=== PATIENT | female | born 1995 | race Two or more races ===

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

== ENCOUNTER 2017-04-04 17:11 | Emergency (ER) | payer SELFPAY, OTHER ==
[2017-04-04 17:51] LABS: URINE HCG POC HCG POSITIVE (Negative)
[2017-04-04 18:22] LABS: BILIRUBIN,URINE NEGATIVE (NEG); CLARITY,URINE CLEAR; COLOR,URINE YELLOW; GLUCOSE,URINE NEGATIVE (NEG); NITRITE,URINE NEGATIVE (NEG); PROTEIN,URINE 100 mg/dL (NEG-TRACE)
[2017-04-04 18:38] LABS: BACTERIA,URINE FEW /HPF (0-FEW); SQUAMOUS EPITHELIAL CELL,UR FEW /LPF; WBC,URINE >40 /HPF (0-4)
== END 2017-04-04 19:25 | disposition home or self-care (01) ==
LOC: ER 17:11
DX: O23.41 Unspecified infection of urinary tract in pregnancy, first trimester (principal); O99.321 Drug use complicating pregnancy, first trimester; F12.10 Cannabis abuse, uncomplicated; Z3A.08 8 weeks gestation of pregnancy; Z87.440 Personal history of urinary (tract) infections
CPT/HCPCS: 81001; 81025; 87086; 99284

== ENCOUNTER 2018-07-10 17:06 | Emergency (ER) | payer SELFPAY ==
[~2018-07-10] VITALS: Ht 154.9 cm; Wt 106.1 kg
[~2018-07-10 17:06] MED LIST changes: +CEPH250C PO
[2018-07-10] MEDS ORDERED: ACETAMINOPHEN 500 MG TABLET PO ONE (18:15)
[2018-07-10 18:53] LABS: INFLUENZA A PATIENT POSITIVE (NEGATIVE); INFLUENZA B PATIENT NEGATIVE (NEGATIVE)
--- NOTE | 2018-07-10 19:11 | RAD ---
CHEST PA LATERAL Technique: PA and lateral views of the chest were obtained. Clinical History: CHEST PAIN, SOA, COUGH, CONGESTION X2 DAYS Comparison: None. Findings: The heart and pulmonary vasculature appear within normal limits. The lungs are clear. The pleural margins are clear. Impression: No acute chest process is seen. Electronically signed by: Negrito Whatley III, MD (07/10/2018 7:07 PM) [facility]
[2018-07-10] MEDS ORDERED: OSEL75CA PO (19:34)
--- NOTE | 2018-07-10 19:35 | PHYS DOC ---
Past Medical History Past Medical History: No Pertinent History (JAMSE KOCH APRN) Past Surgical History: Other Additional Past Surgical Histo: Eye muscle surgery for crossed eyes,FOOT (JAMES KOCH APRN) Alcohol Use: None Drug Use: Marijuana (JAMES KOCH APRN) Adult General Chief Complaint Chief Complaint: COUGH HPI HPI Patient is a 22 year old female who presents with fever, cough, sore throat and nasal congestion since yesterday. (JAMES KOCH APRN) Review of Systems Review of Systems Constitutional: Reports fever Eyes: Denies change in visual acuity, redness, or eye pain [] HENT: Reports nasal congestion and sore throat [] Respiratory: Denies cough or shortness of breath [] Cardiovascular: No additional information not addressed in HPI [] GI: Denies abdominal pain, nausea, vomiting, bloody stools or diarrhea [] : Denies dysuria or hematuria [] Musculoskeletal: Denies back pain or joint pain [] Integument: Denies rash or skin lesions [] Neurologic: Denies headache, focal weakness or sensory changes [] All other systems were reviewed and found to be within normal limits, except as documented in this note. (JAMES KOCH APRN) Current Medications Current Medications Current Medications Medications (Trade) Dose Ordered Sig/Seda Start Time Stop Time Status Last Admin Dose Admin Acetaminophen (Tylenol) 1,000 mg 1X ONCE 07/10/18 18:15 07/10/18 18:16 DC 07/10/18 18:14 1,000 MG (IVETT FOLEY MD) Allergies Allergies Allergies Coded Allergies Type Severity Reaction Last Updated Verified No Known Drug Allergies 10/07/14 No (IVETT FOLEY MD) Physical Exam Physical Exam Constitutional: Well developed, well nourished, no acute distress, non-toxic appearance. [] HENT: Normocephalic, atraumatic, bilateral external ears normal, oropharynx moist, no oral exudates, nose normal. [] Eyes: PERRLA, EOMI, conjunctiva normal, no discharge. [] Neck: Normal range of motion, no tenderness, supple, no stridor. [] Cardiovascular:Heart rate regular rhythm, no murmur [] Lungs & Thorax: Bilateral breath sounds clear to auscultation [] Abdomen: Bowel sounds normal, soft, no tenderness, no masses, no pulsatile masses. [] Skin: Warm, dry, no erythema, no rash. [] Back: No tenderness, no CVA tenderness. [] Extremities: No tenderness, no cyanosis, no clubbing, ROM intact, no edema. [] Neurologic: Alert and oriented X 3, normal motor function, normal sensory function, no focal deficits noted. [] Psychologic: Affect normal, judgement normal, mood normal. [] (JAMES KOCH APRN) Current Patient Data Vital Signs Vital Signs Date Time Temp Pulse Resp B/P (MAP) Pulse Ox O2 Delivery O2 Flow Rate FiO2 07/10/18 17:43 100.8 107 20 129/60 (83) 98 Room Air 100.8 (IVETT FOLEY MD) Lab Values Laboratory Tests Test 07/10/18 18:05 Influenza Type A Antigen Positive (NEGATIVE) Influenza Type B Antigen Negative (NEGATIVE) (IVETT FOLEY MD) EKG EKG [] (JAMES KOCH APRN) Radiology/Procedures Radiology/Procedures [] (JAMES KOCH APRN) Course & Med Decision Making Course & Med Decision Making Pertinent Labs and Imaging studies reviewed. (See chart for details) This is a 22-year-old female patient presenting to the ED today with a fever cough and nasal congestion symptoms for 2 days. Temperature on arrival to the ED 100.4. Negative rapid strep. Negative positive influenza A, negative influenza A, chest x-ray negative. Discharged on Tamiflu. Tylenol/ Motrin for pain or fever. (JAMES KOCH APRN) Course & Med Decision Making attestation: I was working at the time of the ER visit. I was available as needed for consultation but I was not directly involved in the care of the patient. (IVETT FOLEY MD) Dragon Disclaimer Dragon Disclaimer This electronic medical record was generated, in whole or in part, using a voice recognition dictation system. (JAMES KOCH APRN) Departure Departure Impression: Primary Impression: Influenza A Additional Impressions: Fever Cough Viral pharyngitis Disposition: 01 HOME, SELF-CARE Condition: STABLE Referrals: RICARDO GUY MD (PCP) follow up in 1 week Patient Instructions: Influenza A (H1N1) Additional Instructions: You tested positive for influenza A, we put you on Tamiflu, take it as prescribed. Take Tylenol every 4 hours and Motrin every 6 hours as needed for fever. Rest, push fluids. Follow-up with your doctor in 1-2 weeks. Scripts Oseltamivir Phosphate (TAMIFLU) 75 Mg Capsule 1 CAP PO BID, #10 CAP Prov: JAMES KOCH APRN 07/10/18 Problem Qualifiers Additional Impressions: Fever Fever type: unspecified Qualified Codes: R50.9 - Fever, unspecified JAMES KOCH APRN Jul 10, 2018 19:35 IVETT FOLEY MD Jul 10, 2018 19:37
[2018-07-10 19:40] VITALS: BP 139/66
== END 2018-07-10 19:40 | disposition home or self-care (01) ==
LOC: ER 17:06
DX: J10.1 Influenza due to other identified influenza virus with other respiratory manifestations (principal)
CPT/HCPCS: 71046; 87070; 87804; 87880; 99285-25

== ENCOUNTER 2018-10-16 09:58 | Emergency (ER) | payer MEDICAID ==
[~2018-10-16] VITALS: Ht 157.5 cm; Wt 123.5 kg
[~2018-10-16 09:58] MED LIST changes: +OSEL75CA PO
--- NOTE | 2018-10-16 10:29 | PHYS DOC ---
Past Medical History Past Medical History: No Pertinent History Past Surgical History: Other Additional Past Surgical Histo: Eye muscle surgery for crossed eyes,FOOT Alcohol Use: None Drug Use: Marijuana Adult General Chief Complaint Chief Complaint: VAGINAL BLEEDING HPI HPI Patient is a 22 year old female whom is presents to the ED complaining of vaginal bleeding when she wipes this morning. Patient states that she is approximately 9 weeks . Patient has never had a miscarriage before. Last menstrual period was August 12. Denies fever, abdominal pain, nausea/vomiting, back pain, dysuria, hematuria, headache, neck pain, chest pain or shortness of breath. Review of Systems Review of Systems Constitutional: Denies fever or chills [] Eyes: Denies change in visual acuity, redness, or eye pain [] HENT: Denies nasal congestion or sore throat [] Respiratory: Denies cough or shortness of breath [] Cardiovascular: No additional information not addressed in HPI [] GI: Denies abdominal pain, nausea, vomiting, bloody stools or diarrhea [] : Complains of vaginal bleeding.Denies dysuria or hematuria [] Musculoskeletal: Denies back pain or joint pain [] Integument: Denies rash or skin lesions [] Neurologic: Denies headache, focal weakness or sensory changes [] All other systems were reviewed and found to be within normal limits, except as documented in this note. Allergies Allergies Allergies Coded Allergies Type Severity Reaction Last Updated Verified No Known Drug Allergies 10/07/14 No Physical Exam Physical Exam Constitutional: Well developed, well nourished, no acute distress, non-toxic appearance. [] HENT: Normocephalic, atraumatic Eyes: PERRLA, EOMI, conjunctiva normal, no discharge. [] Neck: Normal range of motion, no tenderness, supple, no stridor. [] Cardiovascular:Heart rate regular rhythm, no murmur [] Lungs & Thorax: Bilateral breath sounds clear to auscultation [] Abdomen: Bowel sounds normal, soft, no tenderness, no masses, no pulsatile mass es. [] : Deferred Skin: Warm, dry, no erythema, no rash. [] Back: No tenderness, no CVA tenderness. [] Extremities: No tenderness, no cyanosis, no clubbing, ROM intact, no edema. [] Neurologic: Alert and oriented X 3, normal motor function, normal sensory function, no focal deficits noted. [] Psychologic: Affect normal, judgement normal, mood normal. [] Current Patient Data Vital Signs Vital Signs Date Time Temp Pulse Resp B/P (MAP) Pulse Ox O2 Delivery O2 Flow Rate FiO2 10/16/18 11:24 98.5 63 16 118/62 (80) Room Air 98.5 10/16/18 10:12 100 Lab Values Laboratory Tests Test 10/16/18 10:10 10/16/18 10:18 10/16/18 10:40 Urine Collection Type Void Urine Color Yellow Urine Clarity Clear Urine pH 6.0 Urine Specific [place] 1.025 Urine Protein Negative mg/dL (NEG-TRACE) Urine Glucose (UA) Negative mg/dL (NEG) Urine Ketones (Stick) Negative mg/dL (NEG) Urine Blood Trace (NEG) Urine Nitrite Negative (NEG) Urine Bilirubin Negative (NEG) Urine Urobilinogen Dipstick 1.0 mg/dL (0.2 mg/dL) Urine Leukocyte Esterase Negative (NEG) Urine RBC 1-2 /HPF (0-2) Urine WBC 1-4 /HPF (0-4) Urine Squamous Epithelial Cells Mod /LPF Urine Bacteria Few /HPF (0-FEW) Urine Mucus Mod /LPF POC Urine HCG, Qualitative Hcg positive (Negative) White Blood Count 4.7 x10^3/uL (4.0-11.0) Red Blood Count 4.69 x10^6/uL (3.50-5.40) Hemoglobin 9.7 g/dL (12.0-15.5) L Hematocrit 31.2 % (36.0-47.0) L Mean Corpuscular Volume 67 fL (79-100) L Mean Corpuscular Hemoglobin 21 pg (25-35) L Mean Corpuscular Hemoglobin Concent 31 g/dL (31-37) Red Cell Distribution Width 19.5 % (11.5-14.5) H Platelet Count 298 x10^3/uL (140-400) Neutrophils (%) (Auto) 62 % (31-73) Lymphocytes (%) (Auto) 27 % (24-48) Monocytes (%) (Auto) 9 % (0-9) Eosinophils (%) (Auto) 1 % (0-3) Basophils (%) (Auto) 1 % (0-3) Neutrophils # (Auto) 2.9 x10^3/uL (1.8-7.7) Lymphocytes # (Auto) 1.3 x10^3/uL (1.0-4.8) Monocytes # (Auto) 0.4 x10^3/uL (0.0-1.1) Eosinophils # (Auto) 0.0 x10^3/uL (0.0-0.7) Basophils # (Auto) 0.0 x10^3/uL (0.0-0.2) Platelet Estimate Adequate (ADEQUATE) Hypochromasia Slight Anisocytosis Mod Microcytosis Mod Maternal Serum HCG Beta Subunit 52430 mIU/mL (0-5) H Sodium Level 138 mmol/L (136-145) Potassium Level 3.7 mmol/L (3.5-5.1) Chloride Level 104 mmol/L (98-107) Carbon Dioxide Level 22 mmol/L (21-32) Anion Gap 12 (6-14) Blood Urea Nitrogen 12 mg/dL (7-20) Creatinine 0.8 mg/dL (0.6-1.0) Estimated GFR (Cockcroft-Gault) 91.4 BUN/Creatinine Ratio 15 (6-20) Glucose Level 85 mg/dL (70-99) Calcium Level 8.9 mg/dL (8.5-10.1) Total Bilirubin 0.7 mg/dL (0.2-1.0) Aspartate Amino Transferase (AST) 16 U/L (15-37) Alanine Aminotransferase (ALT) 23 U/L (14-59) Alkaline Phosphatase 76 U/L (46-116) Total Protein 7.5 g/dL (6.4-8.2) Albumin 3.7 g/dL (3.4-5.0) Albumin/Globulin Ratio 1.0 (1.0-1.7) Laboratory Tests 10/16/18 10:40 Laboratory Tests 10/16/18 10:40 EKG EKG [] Radiology/Procedures Radiology/Procedures []PROCEDURE: OB < 14 WKS Examination: Obstetric ultrasound less than 14 weeks HISTORY: History of vaginal bleeding and COMPARISON: None available. Findings: The uterus measures 9.6 x 4.7 x 6.9 cm No significant free fluid identified in the cul-de-sac. Single intrauterine identified with heart rate of 131 bpm Intrauterine gestational sac and yolk sac is identified. Given LMP 08/11/2018. Clinical age 9 weeks and 3 days with estimated date of delivery by LMP 05/18/2019. The crown-rump length measures 8.7 mm corresponding to 6 weeks and 6 days. Estimated date of delivery by ultrasound 06/05/2019. The right ovary measures 2.9 x 1.7 x 2.7 cm . The left ovary measures 3.0 x 1.7 x 2.6 cm. Blood flow identified in the right and left ovaries. There is a mild heterogeneous echogenicity identified in the subchorionic region measuring 2.0 x 0.4 x 1.6 cm likely small subchorionic bleed. IMPRESSION: 1. Single living intrauterine as described above. 2. 2 cm heterogeneous echogenicity identified in the subchorionic region likely small subchorionic bleed. Course & Med Decision Making Course & Med Decision Making Pertinent Labs and Imaging studies reviewed. (See chart for details) []Discussed lab and imaging findings with patient. Patient is 9 weeks and 3 da ys. Patient's resting comfortable in the ED. Abdomen is soft nontender nondistended. No peritoneal signs. Tolerating by mouth. Discussed symptomatic treatment and follow-up with [facility] for reexamination, beta hCG monitoring and a ultrasound if necessary. Discussed reasons to return to the ED. Patient understands and agrees with plan. Dragon Disclaimer Dragon Disclaimer This electronic medical record was generated, in whole or in part, using a voice recognition dictation system. Departure Departure Impression: Primary Impression: Threatened miscarriage in early Disposition: 01 HOME, SELF-CARE Condition: IMPROVED Referrals: RICARDO GUY MD (PCP) Patient Instructions: Threatened Miscarriage ANDRE SURESH Oct 16, 2018 10:29
[2018-10-16 10:34] LABS: BILIRUBIN,URINE NEGATIVE (NEG); CLARITY,URINE CLEAR; COLOR,URINE YELLOW; NITRITE,URINE NEGATIVE (NEG); PROTEIN,URINE NEGATIVE (NEG-TRACE)
[2018-10-16 10:40] LABS: SQUAMOUS EPITHELIAL CELL,UR MOD /LPF
[2018-10-16 10:41] LABS: BACTERIA,URINE FEW /HPF (0-FEW)
[2018-10-16 10:52] LABS: BASO % 1 % (0-3); EOS % 1 % (0-3); HEMATOCRIT 31.2 % (36.0-47.0); HEMOGLOBIN 9.7 g/dL (12.0-15.5); LYMPH # 1.3 x10^3/uL (1.0-4.8); LYMPH % 27 % (24-48); MEAN CORPUSCULAR HEMOGLOBIN 21 pg (25-35); MEAN CORPUSCULAR HGB CONC 31 g/dL (31-37); MEAN CORPUSCULAR VOLUME 67 fL (79-100); MONO # 0.4 x10^3/uL (0.0-1.1); MONO % 9 % (0-9); NEUT # 2.9 x10^3/uL (1.8-7.7); NEUT % 62 % (31-73); PLATELET COUNT 298 x10^3/uL (140-400); RED BLOOD COUNT 4.69 x10^6/uL (3.50-5.40); RED CELL DISTRIBUTION WIDTH 19.5 % (11.5-14.5); WHITE BLOOD COUNT 4.7 x10^3/uL (4.0-11.0)
[2018-10-16 11:03] LABS: CALCIUM 8.9 mg/dL (8.5-10.1); CREATININE 0.8 mg/dL (0.6-1.0); GFR 91.4; POTASSIUM 3.7 mmol/L (3.5-5.1)
[2018-10-16 11:09] LABS: ALBUMIN 3.7 g/dL (3.4-5.0); TOTAL BILIRUBIN 0.7 mg/dL (0.2-1.0); TOTAL PROTEIN 7.5 g/dL (6.4-8.2)
[2018-10-16 11:24] VITALS: BP 118/62
--- NOTE | 2018-10-16 11:26 | RAD ---
Examination: Obstetric ultrasound less than 14 weeks HISTORY: History of vaginal bleeding and COMPARISON: None available. Findings: The uterus measures 9.6 x 4.7 x 6.9 cm No significant free fluid identified in the cul-de-sac. Single intrauterine identified with heart rate of 131 bpm Intrauterine gestational sac and yolk sac is identified. Given LMP 08/11/2018. Clinical age 9 weeks and 3 days with estimated date of delivery by LMP 05/18/2019. The crown-rump length measures 8.7 mm corresponding to 6 weeks and 6 days. Estimated date of delivery by ultrasound 06/05/2019. The right ovary measures 2.9 x 1.7 x 2.7 cm . The left ovary measures 3.0 x 1.7 x 2.6 cm. Blood flow identified in the right and left ovaries. There is a mild heterogeneous echogenicity identified in the subchorionic region measuring 2.0 x 0.4 x 1.6 cm likely small subchorionic bleed. IMPRESSION: 1. Single living intrauterine as described above. 2. 2 cm heterogeneous echogenicity identified in the subchorionic region likely small subchorionic bleed. Electronically signed by: Joseph Meneses MD (10/16/2018 11:23 AM) [id number]
[2018-10-16 12:08] LABS: ANISOCYTOSIS MOD; HYPOCHROMIA SLIGHT; MICROCYTOSIS MOD; PLT ESTIMATE ADEQUATE (ADEQUATE)
== END 2018-10-16 11:48 | disposition home or self-care (01) ==
LOC: ER 09:58
DX: O20.0 Threatened abortion (principal); Z3A.09 9 weeks gestation of pregnancy
CPT/HCPCS: 36415; 76801; 80053; 81001; 81025; 84702; 85025; 99285